=== PATIENT | female | born 1970 | race Caucasian/White ===

== ENCOUNTER 2022-10-02 17:36 | Emergency (ER) | payer OTHER ==
[2022-10-02 18:16] LABS: Bilirubin Negative (Negative); Blood, Urine Moderate (Negative); Clarity Slightly Cloudy (Clear); Glucose, Urine (Dipstick) Negative (Negative); Ketone, Urine 80 mg/dL (Negative); Leukocyte Moderate (Negative); Nitrite Positive (Negative); Protein, Urine (Dipstick) 100 mg/dL (Neg-Trace); Urobilinogen 0.2 mg/dL (Less than 2); pH, Urine 5.5 (5.0-9.0)
[2022-10-02 18:23] LABS: WBC/HPF Greater Than 50 HPF (0-3)
[2022-10-02 18:24] LABS: Bacteria/HPF 3+ HPF (None Seen)
[2022-10-02 19:09] LABS: ALT (SGPT) 16 U/L (8-55); AST (SGOT) 15 U/L (5-34); Albumin 4.6 g/dL (3.5-5.0); Alkaline Phosphatase 58 U/L (40-110); Anion Gap 17 mmol/L (10-20); BUN (Urea Nitrogen) 15 mg/dL (9.8-20.1); Bilirubin, Total 0.3 mg/dL (0.2-1.2); Calc. Creatinine Clearance 0 mL/min (70-130); Calcium 9.7 mg/dL (7.8-10.44); Carbon Dioxide 18 mmol/L (22-29); Chloride 105 mmol/L (98-107); Estimated GFR 58; Globulin 3.1 g/dL (2.4-3.5); Glucose 103 mg/dL (70-105); Hemoglobin 11.4 g/dL (12.0-16.0); Mean Corpuscular HGB CONC 33.1 g/dL (32.0-36.0); Mean Corpuscular Hemoglobin 33.3 pg (27.0-31.0); Mean Platelet Volume 8.1 fL (7.4-10.4); Platelet Count 267 10x3/uL (130-400); Potassium 3.5 mmol/L (3.5-5.1); Protein, Total 7.7 g/dL (6.0-8.3); RBC Distribution Width 13.5 % (11.5-14.5); Red Blood Cell (RBC) Count 3.43 mill/uL (4.20-5.40); Sodium 136 mmol/L (136-145); White Blood Cell (WBC) Count 16.1 10x3/uL (4.8-10.8)
[2022-10-02 19:10] LABS: MDiff Complete? YES; Manual Diff?? YES
[2022-10-02 19:13] LABS: Toxic Granulation SLIGHT; Vacuoles SLIGHT
[2022-10-02 19:14] LABS: Macrocytosis SLIGHT = 6-15 cells (100X) (0-5/hpf); Platelet Morphology Comment Appears Adequate; Stomatocytes SLIGHT = 2-5 cells (100X) (0-1/hpf)
[2022-10-02 19:17] LABS: Band 2 % (5-11); Lymphocytes 12 % (21-51); Monocytes 6 % (0-10); Neutrophil 79 % (42-75); Reactive Lymphocytes 1 % (0-10)
[2022-10-03 00:16] LABS: SARS-CoV-2 NAA Rapid Test Not Detected (NotDetected)
== END 2022-10-03 00:30 | disposition short-term general hospital (02) ==
LOC: NAV ERS 17:36
DX: A41.9 Sepsis, unspecified organism (principal); N10 Acute pyelonephritis; Z20.822 Contact with and (suspected) exposure to COVID-19
CPT/HCPCS: 36415; 80053; 81003; 81015; 83605; 85025; 87040; 87077; 87086; 87149; 87186; 96361; 96365; 96375; 96376; U0002

== ENCOUNTER 2022-10-22 12:35 | Emergency (ER) | payer OTHER ==
[2022-10-22 13:14] LABS: Bilirubin Negative (Negative); Blood, Urine Negative (Negative); Glucose, Urine (Dipstick) Negative (Negative); Ketone, Urine Negative (Negative); Leukocyte Large (Negative); Nitrite Negative (Negative); Protein, Urine (Dipstick) Negative (Neg-Trace); Specific Gravity, Urine 1.015 (1.005-1.030); Urobilinogen 0.2 mg/dL (Less than 2); pH, Urine 5.5 (5.0-9.0)
[2022-10-22 13:20] LABS: Clarity Hazy (Clear)
[2022-10-22 13:27] LABS: Bacteria/HPF 2+ HPF (None Seen); Squamous Epithelial 0-3 HPF (0-3); Yeast-Budding Rare HPF (None Seen)
[2022-10-22] MEDS ORDERED: Sodium Chloride 0.9% 100 ML ONE (14:15)
[2022-10-22] MEDS ORDERED: Piperacillin/Tazobactam 3.375 GM VIAL ONE (14:15)
[2022-10-22] MEDS ORDERED: Sodium Chloride 0.9% 250 ML 250 ML ONE (14:15)
[2022-10-22] MEDS ORDERED: Vancomycin 1 GM VIAL ONE (14:15)
[2022-10-22 14:26] LABS: Anion Gap 18 mmol/L (10-20); BUN (Urea Nitrogen) 16 mg/dL (9.8-20.1); CK (CPK) 37 U/L (29-168); CRP (Inflammatory) Less than 0.50 mg/dL (= or < 0.5); Calc. Creatinine Clearance 0 mL/min (70-130); Calcium 9.5 mg/dL (7.8-10.44); Carbon Dioxide 21 mmol/L (22-29); Chloride 106 mmol/L (98-107); Estimated GFR 74; Glucose 102 mg/dL (70-105); Lipase 25 U/L (8-78); Potassium 4.5 mmol/L (3.5-5.1); Sodium 140 mmol/L (136-145)
[2022-10-22] MEDS ORDERED: Morphine 4 MG/ML VIAL ONE (14:29)
[2022-10-22 14:43] LABS: #Basophils 0.1 thou/uL (0.0-0.2); #Eosinphils 0.3 thou/uL (0.0-0.7); #Lymphocytes 2.6 thou/uL (1.20-3.40); #Monocytes 0.5 thou/uL (0.11-0.59); #Neutrophils 1.4 thou/uL (1.40-6.50); %Basophils 2.8 % (0.0-1.0); %Eosinophils 5.6 % (0.0-10.0); %Lymphocytes 53.1 % (21.0-51.0); %Monocytes 9.2 % (0.0-10.0); %Neutrophils 29.4 % (42.0-75.0); Hemoglobin 10.3 g/dL (12.0-16.0); Mean Corpuscular Hemoglobin 32.8 pg (27.0-31.0); Mean Platelet Volume 6.6 fL (7.4-10.4); Platelet Count 431 10x3/uL (130-400); RBC Distribution Width 13.6 % (11.5-14.5); Red Blood Cell (RBC) Count 3.14 mill/uL (4.20-5.40); White Blood Cell (WBC) Count 4.9 10x3/uL (4.8-10.8)
== END 2022-10-22 15:10 | disposition short-term general hospital (02) ==
LOC: NAV ERS 12:35
DX: N39.0 Urinary tract infection, site not specified (principal); R20.0 Anesthesia of skin; R32 Unspecified urinary incontinence
CPT/HCPCS: 51702; 51798; 80048; 81003; 81015; 82550; 83605; 83690; 85025; 85652; 86140; 87040; 96365; 96368; 96375; J2270; J2543; J3370; J3490; J7050